=== PATIENT | male | born 1975 | race Caucasian/White ===

== ENCOUNTER 2018-03-09 10:31 | Emergency (ER) | payer MEDICAID, SELFPAY ==
[~2018-03-09] VITALS: Ht 180.3 cm; Wt 112.0 kg
[2018-03-09 10:32] VITALS: BP 163/106
--- NOTE | 2018-03-09 11:21 | NUR ---
patient safe in [facility], call light in reach, D/C orders entered by .
== END 2018-03-09 12:02 | disposition home or self-care (01) ==
LOC: ED 11:34
DX: G56.03 Carpal tunnel syndrome, bilateral upper limbs (principal)
CPT/HCPCS: 99281